=== PATIENT | female | born 1980 | race Caucasian/White ===

== ENCOUNTER 2016-09-06 11:31 | Emergency (ER) | payer BC ==
--- OUTSIDE RECORDS SUMMARY | 2016-09-06 11:53 | XMS REPORT | Summary of Care ---
:1980 Author Organization [facility] Address [address] [place] [address] Care Team Providers Name Role Phone DaesreeShrutiae Primary Care Physician Encounter Date(s): 04/06/16 - 04/06/16 [facility] [address], [address] [place], [place] [address] Discharge Disposition: 01 Discharged to Home or Self Care Attending Physician: Arnoldo Mcghee MD Vital Signs No data available for this section Problem List No data available for this section Allergies, Adverse Reactions, Alerts Substance Reaction Severity Status acetaminophen Active HYDROcodone Active Medications Carafate 1 g oral tablet 1 tab(s), Oral, QID, # 120 tab(s), 0 Refill(s), Start Date: 05/18/15 15:13:00 CDT, Pharmacy: [id number] Start Date: 05/18/15 Status: OrderedContrave 8 mg-90 mg oral tablet, extended release TK 2 TS PO BID IN THE MORNING AND EVENING FOR 30 DAYS Special Instructions: TK 2 TS PO BID IN THE MORNING AND EVENING FOR 30 DAYS Start Date: 05/13/15 Stop Date: 07/08/15 Status: DiscontinuedFlagyl 500 mg oral tablet 4 tab(s), Oral, ONETIME, # 4 tab(s), 0 Refill(s), Pharmacy: [id number] Start Date: 07/04/13 Stop Date: 05/13/15 Status: CompletedFlagyl 500 mg oral tablet 4 tab(s), Oral, ONETIME, # 4 tab(s), 0 Refill(s) Start Date: 07/04/13 Stop Date: 07/04/13 Status: DiscontinuedFlonase 50 mcg/inh nasal spray 2 spray(s), Nasal, BID, X 30 days, # 1 EA, 0 Refill(s), Start Date: 12/07/14 9: 38:00 CDT Start Date: 12/07/14 Stop Date: 01/06/15 Status: Completedhydrochlorothiazide 12.5 mg oral tablet 1 tab(s), Oral, As Indicated, PRN edema, TK 1 T PO ONCE DAILY FOR 30 DAYS Special Instructions: TK 1 T PO ONCE DAILY FOR 30 DAYS Start Date: 05/13/15 Status: Orderedhyoscyamine 0.125 mg sublingual tablet See Instructions, PRN abdominal pain, 1-2 tab(s) SL up to four times a day as needed for abdominal pain., # 30 tab(s), 1 Refill(s), Start Date: 07/20/15 11:39 :00 CDT, [facility] [id number] Special Instructions: 1-2 tab(s) SL up to four times a day as needed for abdominal pain. Start Date: 07/20/15 Status: OrderedJunel 1.5/30 oral tablet 1 tab(s), Oral, Daily, 0 Refill(s) Start Date: 07/04/13 Stop Date: 05/13/15 Status: Completedmeloxicam 15 mg oral tablet 1 tab(s), Oral, Daily, # 30 tab(s), 1 Refill(s), Start Date: 03/16/16 10:37:00 NECK PINNER, [facility] [id number] Start Date: 03/16/16 Status: OrderedNaprosyn 500 mg oral tablet 1 tab(s), Oral, BID, PRN for pain, X 15 days, # 30 tab(s), 0 Refill(s), Start Date: 05/13/15 19:06:00 CDT Start Date: 05/13/15 Stop Date: 05/28/15 Status: Completedomeprazole 40 mg oral delayed release capsule TK 1 C PO QD FOR 30 DAYS Special Instructions: TK 1 C PO QD FOR 30 DAYS Start Date: 05/13/15 Status: Orderedpantoprazole 40 mg oral delayed release tablet 1 tab(s), Oral, Daily, # 30 tab(s), 0 Refill(s) Start Date: 07/04/13 Stop Date: 05/13/15 Status: Completedphentermine 37.5 mg oral tablet 1 tab(s), Oral, Daily, 0 Refill(s) Start Date: 07/04/13 Stop Date: 05/13/15 Status: CompletedPromethazine with Codeine 6.25 mg-10 mg/5 mL oral syrup 5 mL, Oral, q4hr, PRN for cough, X 7 days, # 210 mL, 0 Refill(s), Start Date: 9:38:00 CDT Start Date: 12/07/14 Stop Date: 12/14/14 Status: CompletedReadi-Cat 2 oral suspension See Instructions, Oral ONETIME, # 2 bottles, 0 Refill(s), Start Date: 08/12/15 16:43:00 CDT, Pharmacy: [facility] Special Instructions: Oral ONETIME Start Date: 08/12/15 Status: OrderedZyrTEC 10 mg oral tablet 1 tab(s), Oral, Daily, PRN for allergy symptoms, X 14 days, # 14 tab(s), 0 Refill(s), Start Date: 12/07/14 9:38:00 CDT Start Date: 12/07/14 Stop Date: 12/21/14 Status: Completed Results No data available for this section Immunizations No data available for this section Procedures Procedure Date Related Diagnosis Body Site Breath Test Bacteria Lactulose1 07/10/15 Esophagogastroduodenoscopy2 06/05/15 Stripping of vein 04/08/13 Laparoscopic cholecystectomy 06/2012 Extraction of wisdom tooth 2012 Tonsillectomy 1985 1auto-populated from documented surgical [id number] from documented surgical case Social History No data available for this section Assessment and Plan No data available for this section
--- OUTSIDE RECORDS SUMMARY | 2016-09-06 11:54 | XMS REPORT | Summary of Care ---
:1980 Author Organization [facility] Address [address] [place] [address] Care Team Providers Name Role Phone LiangfauziaJeannette Primary Care Physician Encounter Date(s): 03/16/16 - 03/16/16 [facility] [address], [address] [place], [place] [address] Discharge Disposition: 01 Discharged to Home or Self Care Attending Physician: Festus Blackman DO Referring Physician: Unknown Physician Vital Signs Most recent to oldest [Reference Range]: 1 Peripheral Pulse Rate [60-100 bpm] 80 bpm (03/16/16 10:17 AM) Blood Pressure [90-130/60-90 mmHg] 126/84mmHg (03/16/16 10:17 AM) Mean Arterial Pressure, Cuff 98 mmHg (03/16/16 10:17 AM) Most recent to oldest [Reference Range]: 1 Height/Length Measured 167 cm (03/16/16 10:17 AM) Weight Dosing 152.90 kg1 (03/16/16 10:19 AM) Weight Measured 152.9 kg (03/16/16 10:17 AM) BSA Measured 2.49 m2 (03/16/16 10:17 AM) Body Mass Index Measured 54.82 kg/m2 (03/16/16 10:17 AM) 1Result Comment: This result was because the dosing weight was either not entered or it is>30 days old. This result is based off: Weight Measured March 16, 2016 10:17:00 FILL MANAGER by Karoline James CMA Problem List No data available for this section Allergies, Adverse Reactions, Alerts Substance Reaction Severity Status acetaminophen Active HYDROcodone Active Medications Carafate 1 g oral tablet 1 tab(s), Oral, QID, # 120 tab(s), 0 Refill(s), Start Date: 05/18/15 15:13:00 CDT, Pharmacy: [id number] Start Date: 05/18/15 Status: OrderedContrave 8 mg-90 mg oral tablet, extended release TK 2 TS PO BID IN THE MORNING AND EVENING FOR 30 DAYS Special Instructions: TK 2 TS PO BID IN THE MORNING AND EVENING FOR 30 DAYS Start Date: 05/13/15 Stop Date: 07/08/15 Status: DiscontinuedFlagyl 500 mg oral tablet 4 tab(s), Oral, ONETIME, # 4 tab(s), 0 Refill(s), Pharmacy: [facility] [id number] Start Date: 07/04/13 Stop Date: 05/13/15 Status: [...] Start Date: 07/20/15 11:39 :00 CDT, Pharmacy: [id number] Special Instructions: 1-2 tab(s) SL up to four times a day as needed for abdominal pain. Start Date: 07/20/15 Status: OrderedJunel 1.5/30 oral tablet 1 tab(s), Oral, Daily, 0 Refill(s) Start Date: 07/04/13 Stop Date: 05/13/15 Status: Completedmeloxicam 15 mg oral tablet 1 tab(s), Oral, Daily, # 30 tab(s), 1 Refill(s), Start Date: 03/16/16 10:37:00 FILL MANAGER, Pharmacy: [facility] [id number] Start Date: 03/16/16 Status: OrderedNaprosyn 500 mg [...] Refill(s), Start Date: 08/12/15 16:43:00 CDT, Pharmacy: [facility] Special Instructions: Oral ONETIME Start Date: [...] 06/2012 Extraction of wisdom tooth 2012 Tonsillectomy 1986 1auto-populated from documented surgical [id number] from documented surgical case Social History No data available for this section Assessment and Plan No data available for this section
--- OUTSIDE RECORDS SUMMARY | 2016-09-06 11:54 | XMS REPORT | Summary of Care ---
:[address] [facility] Address [address] [place] [address] Care Team Providers Name Role Phone Daesree Jeannette Primary Care Physician Encounter Date(s): 07/10/15 - 07/10/[address] [email or web address] Final: Unspecified abdominal pain Discharge Disposition: Discharged to Home or Self Care Attending Physician: Reji Jean DO Admitting Physician: Reji Jean DO Vital Signs No data available for this section Problem List No data available for this section Allergies, Adverse Reactions, Alerts Substance Reaction Severity Status acetaminophen Active HYDROcodone Active Medications Carafate 1 g oral tablet 1 tab(s), Oral, QID, # 120 tab(s), 0 Refill(s), Start Date: 05/18/15 15:13:00 CDT, Pharmacy: [id number] Start Date: 05/18/15 Status: OrderedContrave 8 mg-90 mg oral tablet, extended release TK 2 TS PO BID IN THE MORNING AND EVENING FOR 30 DAYS Special Instructions: TK 2 TS PO BID IN THE MORNING AND EVENING FOR 30 DAYS Start Date: 05/13/15 Stop Date: 07/08/15 Status: DiscontinuedFlagyl 500 mg oral tablet 4 tab(s), Oral, ONETIME, # 4 tab(s), 0 Refill(s), Pharmacy: [facility] [id number] Start Date: 07/04/13 Stop Date: 05/13/15 Status: [...] Start Date: 07/20/15 11:39 :00 CDT, Pharmacy: [facility] [id number] Special Instructions: 1-2 tab(s) SL up to four times a day as needed for abdominal pain. Start Date: 07/20/15 Status: OrderedJunel 1.5/30 oral tablet 1 tab(s), Oral, Daily, 0 Refill(s) Start Date: 07/04/13 Stop Date: 05/13/15 Status: CompletedNaprosyn 500 mg oral tablet 1 tab(s), Oral, [...] Start Date: 12/07/14 Stop Date: 12/14/14 Status: CompletedZyrTEC 10 mg oral tablet 1 tab(s), Oral, [...] 2012 Tonsillectomy 1986 1auto-populated from documented surgical [id number] from documented surgical case Social History No data available for this section Assessment and Plan No data available for this section
--- OUTSIDE RECORDS SUMMARY | 2016-09-06 11:54 | XMS REPORT | Summary of Care ---
:1980 Author Organization [facility] Address [address] [place] [address] [address] [place] [address] Care Team Providers Name Role Phone Jeannette Bardales Primary Care Physician Encounter Date(s): 07/20/15 - 07/20/15 [facility] [address] [place] [address] [address] [place] [address]- Discharge Diagnosis: Fatty infiltration of liver Discharge Diagnosis: Cough Discharge Diagnosis: Epigastric abdominal pain Discharge Disposition: 01 Discharged to Home or Self Care Attending Physician: MARIE Lynn Referring Physician: MARIE Lynn Vital Signs Most recent to oldest [Reference Range]: 1 Peripheral Pulse Rate [60-100 bpm] 74 bpm (07/20/15 11:12 AM) Blood Pressure [90-130/60-90 mmHg] 119/81mmHg (07/20/15 11:12 AM) Mean Arterial Pressure, Cuff 94 mmHg (07/20/15 11:12 AM) Most recent to oldest [Reference Range]: 1 Height/Length Measured 167 cm (07/20/15 11:12 AM) Weight Dosing 152.5 kg (07/20/15 11:12 AM) Weight Measured 152.5 kg (07/20/15 11:12 AM) BSA Measured 2.49 m2 (07/20/15 11:12 AM) Body Mass Index Measured 54.68 kg/m2 (07/20/15 11:12 AM) Problem List No data available for this section Allergies, Adverse Reactions, Alerts Substance Reaction Severity Status acetaminophen Active HYDROcodone Active Medications Carafate 1 g oral tablet 1 tab(s), Oral, QID, # 120 tab(s), 0 Refill(s), Start Date: 05/18/15 15:13:00 CDT, Pharmacy: [id number] Start Date: 05/18/15 Status: OrderedContrave 8 mg-90 mg oral tablet, extended release TK 2 TS PO BID IN THE MORNING AND EVENING FOR 30 DAYS Special Instructions: TK 2 TS PO BID IN THE MORNING AND EVENING FOR 30 DAYS Start Date: 05/13/15 Stop Date: 07/08/15 Status: DiscontinuedFlagyl 500 mg oral tablet 4 tab(s), Oral, ONETIME, # 4 tab(s), 0 Refill(s), Pharmacy: [id number] Start Date: 07/04/13 Stop Date: 05/13/15 Status: [...] Start Date: 07/20/15 11:39 :00 CDT, Pharmacy: [id number] Special Instructions: 1-2 tab(s) SL up to [...] 2012 Tonsillectomy 1985 1auto-populated from documented surgical [id number] from documented surgical case Social History No data available for this section Assessment and Plan No data available for this section
--- OUTSIDE RECORDS SUMMARY | 2016-09-06 11:54 | XMS REPORT | Summary of Care ---
:1980 Author Organization [facility] Address [address] [place] [address]- Care Team Providers Name Role Phone Daesree Jeannette Primary Care Physician Encounter Date(s): 07/10/15 - 07/10/[address] [address] Final: Unspecified abdominal pain Discharge Disposition: Discharged [...] Refill(s), Start Date: 05/18/15 15:13:00 CDT, Pharmacy: [facility] [id number] Start Date: 05/18/15 Status: OrderedContrave 8 mg-90 mg oral tablet, extended release TK 2 TS PO BID IN THE MORNING AND EVENING FOR 30 DAYS Special Instructions: TK 2 TS PO BID IN THE MORNING AND EVENING FOR 30 DAYS Start Date: 05/13/15 Stop Date: 07/08/15 Status: DiscontinuedFlagyl 500 mg oral tablet 4 tab(s), Oral, ONETIME, # 4 tab(s), 0 Refill(s), Pharmacy: [facility] [id number] Start Date: 07/04/13 Stop Date: 05/13/15 Status: [...] Start Date: 07/20/15 11:39 :00 CDT, Pharmacy: [facility] [id number] Special Instructions: 1-2 tab(s) SL up to [...] 2012 Tonsillectomy 1986 1auto-populated from documented surgical [id number] from documented surgical case Social History No data available for this section Assessment and Plan No data available for this section
--- OUTSIDE RECORDS SUMMARY | 2016-09-06 11:55 | XMS REPORT | Summary of Care ---
:1980 Author Organization [facility] Care Team Providers Name Role Phone LiangfauziaJeannette Primary Care Physician Encounter Date(s): 07/18/16 - 07/18/[address] [address] Discharge Diagnosis: Keo-gbat-aiwwqmd adverse reaction to medication Discharge Disposition: Discharged to Home or Self Care Attending Physician: Nick Muller MD Admitting Physician: Nick Muller MD Vital Signs Most recent to oldest [Reference 1 2 3 Range]: Temperature Temporal Artery 36.3 DegC [36.0-38.0 DegC] (07/18/16 3:44 PM) Heart Rate Monitored [60-100 bpm] 77 bpm 77 bpm 80 bpm (07/18/16 6:15 PM) (07/18/16 5:45 PM) (07/18/16 5:30 PM) Respiratory Rate [12-20 br/min] 17 br/min 15 br/min 22 br/min (07/18/16 6:15 PM) (07/18/16 5:45 PM) *HI* (07/18/16 5:30 PM) SpO2 [90-100 %] 99 % 98 % 97 % (07/18/16 6:15 PM) (07/18/16 5:45 PM) (07/18/16 5:30 PM) Blood Pressure [90-130/60-90 mmHg] 120/72mmHg 120/95mmHg 117/74mmHg (07/18/16 6:15 PM) (07/18/16 5:45 PM) (07/18/16 5:30 PM) Mean Arterial Pressure Monitor 83 mmHg 101 mmHg 84 mmHg Measure (07/18/16 6:15 PM) (07/18/16 5:45 PM) (07/18/16 5:30 PM) Most recent to oldest [Reference Range]: 1 2 3 Weight Estimated 115 kg (07/18/16 3:44 PM) Weight Dosing 115.00 kg1 (07/18/16 3:46 PM) 1Result Comment: This result was because the dosing weight was either not entered or it is>30 days old. This result is based off: Weight Estimated July 18, 2016 15:44:00 CDT by Jenny Castro RN Problem List Condition Effective Dates Status Health Status Informant Dmd-kzhv-nbtbiot adverse reaction to Active medication(Confirmed) Allergies, Adverse Reactions, Alerts Substance Reaction Severity Status acetaminophen Active HYDROcodone Active Medications Carafate 1 g oral tablet 1 tab(s), Oral, QID, # 120 tab(s), 0 Refill(s), Start Date: 05/18/15 15:13:00 CDT, Pharmacy: [facility] [id number] Start Date: 05/18/15 Stop Date: 07/18/16 Status: CompletedContrave 8 mg-90 mg oral tablet, extended release TK 2 TS PO BID IN THE MORNING AND EVENING FOR 30 DAYS Special Instructions: TK 2 TS PO BID IN THE MORNING AND EVENING FOR 30 DAYS Start Date: 05/13/15 Stop Date: 07/08/15 Status: DiscontinuedFlagyl 500 mg oral tablet 4 tab(s), Oral, ONETIME, # 4 tab(s), 0 Refill(s), Pharmacy: [facility] [id number] Start Date: 07/04/13 Stop Date: 05/13/15 Status: CompletedFlagyl 500 mg oral tablet 4 tab(s), Oral, ONETIME, # 4 tab(s), 0 Refill(s) Start Date: 07/04/13 Stop Date: 07/04/13 Status: DiscontinuedFlexeril 10 mg oral tablet 1 tab(s), Oral, HS, PRN as needed for muscle spasm, 0 Refill(s), Start Date: 06/29 16:04:00 CDT Start Date: 07/18/16 Status: OrderedFlonase 50 mcg/inh nasal spray 2 spray(s), Nasal, [...] DAILY FOR 30 DAYS Start Date: 05/13/15 Stop Date: 07/18/16 Status: Completedhyoscyamine 0.125 mg sublingual tablet See Instructions, PRN abdominal pain, 1-2 tab(s) SL up to four times a day as needed for abdominal pain., # 30 tab(s), 1 Refill(s), Start Date: 07/20/15 11:39 :00 CDT, Pharmacy: [facility] [id number] Special Instructions: 1-2 tab(s) SL up to four times a day as needed for abdominal pain. Start Date: 07/20/15 Status: OrderedJunel 1.5/30 oral tablet 1 tab(s), Oral, Daily, 0 Refill(s) Start Date: 07/04/13 Stop Date: 05/13/15 Status: CompletedLexapro 10 mg oral tablet 1 tab(s), Oral, Daily, # 30 tab(s), 0 Refill(s), Start Date: 07/18/16 16:03:00 CDT Start Date: 07/18/16 Status: Orderedlisinopril-hydroCHLOROthiazide 10 mg-12.5 mg oral tablet 1 tab(s), Oral, Daily, # 30 tab(s), 0 Refill(s), Start Date: 07/18/16 16:03:00 CDT Start Date: 07/18/16 Status: Orderedmeloxicam 15 mg oral tablet 1 tab(s), Oral, Daily, # 30 tab(s), 1 Refill(s), Start Date: 03/16/16 10:37:00 STUDIO ARTIST, Pharmacy: [facility] [id number] Start Date: 03/16/16 Stop Date: 07/18/16 Status: CompletedNaprosyn 500 mg oral tablet 1 tab(s), Oral, BID, PRN for pain, X 15 days, # 30 tab(s), 0 Refill(s), Start Date: 05/13/15 19:06:00 CDT Start Date: 05/13/15 Stop Date: 05/28/15 Status: Completedomeprazole 40 mg oral delayed release capsule 1 cap(s), Oral, Daily, PRN indigestion, TK 1 C PO QD FOR 30 [...] Refill(s), Start Date: 08/12/15 16:43:00 CDT, [facility] Special Instructions: Oral ONETIME Start Date: 08/12/15 Stop Date: 07/18/16 Status: CompletedZyrTEC 10 mg oral tablet 1 tab(s), Oral, Daily, PRN for allergy symptoms, X 14 days, # 14 tab(s), 0 Refill(s), Start Date: 12/07/14 9:38:00 CDT Start Date: 12/07/14 Stop Date: 12/21/14 Status: Completed Results Patient Viewable Results Most recent to oldest [Reference Range]: 1 WBC [4.8-10.8 thou/mm3] 8.2 thou/mm3 (07/18/16 4:23 PM) RBC [4.20-5.40 Mil/mm3] 4.69 Mil/mm3 (07/18/16 4:23 PM) Hgb [12.0-16.0 g/dL] 14.1 g/dL (07/18/16 4:23 PM) Hct [37.0-47.0 %] 41.9 % (07/18/16 4:23 PM) MCV [80.0-94.0 fL] 89.3 fL (07/18/16 4:23 PM) MCH [25.0-38.0 pg/cell] 30.1 pg/cell (07/18/16 4:23 PM) MCHC [31.0-37.0 g/dL] 33.7 g/dL (07/18/16 4:23 PM) RDW [1.0-48.0 fL] 44.1 fL (07/18/16 4:23 PM) Platelet [130-400 thou/mm3] 308 thou/mm3 (07/18/16 4:23 PM) Neutrophils % Auto [50.0-75.0 %] 65.4 % (07/18/16 4:23 PM) Immature Granulocyte Auto [0.1-2.0 %] 0.2 % (07/18/16 4:23 PM) Lymphocytes % Auto [15.0-41.0 %] 26.2 % (07/18/16 4:23 PM) Monocytes % Auto [2.0-10.0 %] 7.1 % (07/18/16 4:23 PM) Eosinophils % Auto [0.0-6.0 %] 0.9 % (07/18/16 4:23 PM) Basophil % Auto [0.0-1.0 %] 0.2 % (07/18/16 4:23 PM) Neutrophils Absolute [1.5-5.9 thou/mm3] 5.4 thou/mm3 (07/18/16 4:23 PM) Immature Gran Absolute [0.01-0.03 thou/mm3] 0.02 thou/mm3 (07/18/16 4:23 PM) Lymphocytes Absolute [1.5-4.0 thou/mm3] 2.2 thou/mm3 (07/18/16 4:23 PM) Monocytes Absolute [0.0-0.9 thou/mm3] 0.6 thou/mm3 (07/18/16 4:23 PM) Eosinophil Absolute [0.0-0.7 thou/mm3] 0.1 thou/mm3 (07/18/16 4:23 PM) Basophil Absolute [0.0-0.2 thou/mm3] 0.0 thou/mm3 (07/18/16 4:23 PM) Sodium Lvl [135-144 mEq/L] 136 mEq/L (07/18/16:23 PM) Potassium Lvl [3.3-4.8 mEq/L] 3.9 mEq/L (07/18/16:23 PM) Chloride Lvl [98-107 mEq/L] 95 mEq/L *LOW* (07/18/16: PM) Bicarbonate Lvl [22-30 mmol/L] 27 mmol/L (07/18/16:23 PM) Anion Gap [10.0-20.0] 17.9 (07/18/16:23 PM) Glucose Lvl [70-108 mg/dL] 100 mg/dL (07/18/16:23 PM) BUN [7-21 mg/dL] 8 mg/dL (07/18/16:23 PM) Creatinine Lvl [0.50-1.20 mg/dL] 0.63 mg/dL (07/18/16:23 PM) BUN/Creat Ratio 12.7 *NA* (07/18/16:23 PM) eGFR AA [>=60] >60 (07/18/16:23 PM) eGFR EDI [>=60] >60 (07/18/16:23 PM) Calcium Lvl [8.6-10.2 mg/dL] 9.4 mg/dL (07/18/16:23 PM) Total Protein [6.4-8.3 g/dL] 7.9 g/dL (07/18/16:23 PM) Albumin Lvl [3.5-5.2 g/dL] 4.5 g/dL (07/18/16:23 PM) Globulin 3.4 *NA* (07/18/16:23 PM) A/G Ratio [0.9-1.8] 1.3 (07/18/16:23 PM) Bilirubin Total [0.1-1.0 mg/dL] 0.4 mg/dL (07/18/16:23 PM) Alkaline Phosphatase [39-129 unit/L] 72 unit/L (07/18/16 4:23 PM) AST [0-39 unit/L] 20 unit/L (07/18/16 4:23 PM) ALT [0-40 unit/L] 22 unit/L (07/18/16 4:23 PM) Troponin-I [0.00-0.04 ng/mL] <0.01 ng/mL (07/18/16 4:23 PM) TSH [0.50-3.00 mIU/L] 1.56 mIU/L (07/18/16 4:23 PM) Estimated Creatinine Clearance 159.83 mL/min (07/18/16 4:56 PM) Immunizations No data available for this section Procedures Procedure Date Related Diagnosis Body Site Breath Test Bacteria Lactulose1 07/10/15 Esophagogastroduodenoscopy2 06/05/15 Stripping of vein 04/08/13 Laparoscopic cholecystectomy 06/2012 Extraction of wisdom tooth 2012 Tonsillectomy 1985 1auto-populated from documented surgical [id number] from documented surgical case Social History No data available for this section Assessment and Plan No data available for this section
--- OUTSIDE RECORDS SUMMARY | 2016-09-06 11:55 | XMS REPORT | Summary of Care ---
:1980 Author Organization [facility] Address [address] [place] [address] [address] [place] [address] Care Team Providers Name Role Phone JeffyShrutiae Primary Care Physician Encounter Date(s): 07/10/15 - 07/10/15 [facility] [address] [place] [address] [address] [place] [address]- Discharge Disposition: 01 Discharged to Home or Self Care Attending Physician: MARIE Lynn Referring Physician: Reji Jean, Vital Signs No data available for this section Problem List No data available for this section Allergies, Adverse Reactions, Alerts Substance Reaction Severity Status acetaminophen Active HYDROcodone Active Medications Carafate 1 g oral tablet 1 tab(s), Oral, QID, # 120 tab(s), 0 Refill(s), Start Date: 05/18/15 15:13:00 CDT, Pharmacy: [facility] [id number] Start Date: 05/18/15 Status: OrderedContrave 8 mg-90 mg oral tablet, extended release TK 2 TS PO BID IN THE MORNING AND EVENING FOR 30 DAYS Special Instructions: TK 2 TS PO BID IN THE MORNING AND EVENING FOR 30 DAYS Start Date: 05/13/15 Stop Date: 07/08/15 Status: DiscontinuedFlagyl 500 mg oral tablet 4 tab(s), Oral, ONETIME, # 4 tab(s), 0 Refill(s), Pharmacy: [facility] [id number] Start Date: 07/04/13 Stop Date: 05/13/15 Status: [...] Start Date: 07/20/15 11:39 :00 CDT, Pharmacy: [facility] Special Instructions: 1-2 tab(s) SL up to [...] 2012 Tonsillectomy 1985 1auto-populated from documented surgical [id number] from documented surgical case Social History No data available for this section Assessment and Plan No data available for this section
--- OUTSIDE RECORDS SUMMARY | 2016-09-06 11:55 | XMS REPORT | Summary of Care ---
:1980 Author Organization [facility] Address [address] [place] [id number] Care Team Providers Name Role Phone DaeJeannette balbuena Primary Care Physician Encounter Date(s): 07/20/15 - 07/20/[address] [id number] Final: Epigastric pain Discharge Disposition: 01 Discharged to Home or Self Care Attending Physician: MARIE Lynn Vital Signs No data available for this section Problem List No data available for this section Allergies, Adverse Reactions, Alerts Substance Reaction Severity Status acetaminophen Active HYDROcodone Active Medications Carafate 1 g oral tablet 1 tab(s), Oral, QID, # 120 tab(s), 0 Refill(s), Start Date: 05/18/15 15:13:00 CDT, Pharmacy: [facility] [id number] Start Date: 05/18/15 Status: OrderedContrave 8 mg-90 mg oral tablet, extended release TK 2 TS PO BID IN THE MORNING AND EVENING FOR 30 DAYS Special Instructions: TK 2 TS PO BID IN THE MORNING AND EVENING FOR 30 DAYS Start Date: 05/13/15 Stop Date: 07/08/15 Status: DiscontinuedFlagyl 500 mg oral tablet 4 tab(s), Oral, ONETIME, # 4 tab(s), 0 Refill(s), Pharmacy: [facility] [id number] Start Date: 07/04/13 Stop Date: 05/13/15 Status: [...] Start Date: 07/20/15 11:39 :00 CDT, Pharmacy: [facility] [id number] Special Instructions: 1-2 tab(s) SL up to [...] Most recent to oldest [Reference Range]: 1 TTG IgA-Khan [<4.0 (Negative)] <1.21 *NA* (07/20/15 11:59 AM) Endomysial IgA-Khan [Negative] Negative2 *NA* (07/20/15 11:59 AM) 1Result Comment: Test Performed by: [place] [address] Coordinator Skill Training Program: Cristhian Cruz II, M.D., Ph.D.2Result Comment: Negative in normal individuals. May be negative in dermatitis herpatiformis or celiac disease patients adhering to a gluten free diet. ADDITIONAL INFORMATION Laboratory developed test. Test Performed by: [place] [address] Coordinator Skill Training Program: Cristhian Cruz II, M.D., Ph.D. Immunizations No data available for this section Procedures Procedure Date Related Diagnosis Body Site Breath Test Bacteria Lactulose1 07/10/15 Esophagogastroduodenoscopy2 06/05/15 Stripping of vein 04/08/13 Laparoscopic cholecystectomy 06/2012 Extraction of wisdom tooth 2012 Tonsillectomy 1985 1auto-populated from documented surgical [id number] from documented surgical case Social History No data available for this section Assessment and Plan No data available for this section
[2016-09-06] MEDS ORDERED: ACETAMINOPHEN 500 MG TABLET PO ONE (12:46)
[2016-09-06 12:47] VITALS: BP 138/89
--- NOTE | 2016-09-06 13:14 | ERNOTE ---
Lower Extremity HPI - Narrative Date of Service: 09/06/16 - General Lower Extremities Pain: other: left - thigh Time Seen by Provider: 09/06/16 11:40 Source: patient - Immun/Allergies/Home Medications Immunizations: IMMUNIZATION HX Immunizations Up to Date Yes History of Influenza Vaccine Yes Hx Pneumococcal Vaccination Yes Allergies/Adverse Reactions: Allergies Allergy/AdvReac Type Severity Reaction Status Date / Time hydrocodone Allergy Swelling Verified 09/06/16 11:39 of Face Home Medications: HOME MEDICATIONS Hydrochlorothiazide [Hydrodiuril] 25 mg PO DAILY 04/29/15 [Last Taken 04/28/15] Lisinopril [Prinivil] 10 mg PO DAILY 09/06/16 [Last Taken Unknown] Naproxen 500 mg PO BID #10 tablet. 09/06/16 [Last Taken Unknown] Omeprazole 40 mg PO DAILY 09/06/16 [Last Taken Unknown] - History of Present Illness Narrative: Patient presents concerned about a blood clot. She relates that yesterday mornign she wqoke up and had pain in her left thigh. This was associated with swelling of her left leg. She deniers injury. It hurts in her thigh to walk on it. no N/T/W. no joint pain. no fever. She talked to a nurse at work and was told to go to the ED to be checked for a blood clot. No specific joint pain. no redness. no other pain. no abdominal pain. No fever or vomiting. Pain worse with weight bearing. No back pain, no radicular Sx. Occurred: yesterday Method of Injury: Reports: other - none Modifying Factors - (Improves): Reports: rest Modifying Factors - (Worsens): Reports: other - walking Associated Symptoms: Denies: unable to bear weight Subsequent Symptoms: Denies: numbness, motor loss, bowel/bladder problem Prior Treament: Denies: recently seen Review of Systems - Review of Systems Constitutional: Absent: fever Respiratory: Absent: shortness of breath Cardiology: Absent: chest pain Gastrointestinal/Abdominal: Absent: abdominal pain Genitourinary: Absent: dysuria Musculoskeletal: Present: muscle pain. Absent: back pain Skin: Absent: rash Neurological: Absent: weakness Hematologic/Lymphatic: Absent: easy bruising - Patient's Past Medical History Patient History - Medical: GERD Patient History - Cardiac/Respiratory: Deep Vein Thrombosis, Hypertension Patient History - Cancer: No Hx of Cancer Patient History - Surgical Procedures: Cholecystectomy, T & A, Other - Social History Abuse History: No History of abuse Psych History: No pertinent hx Smoking Status: Never smoker Have you smoked in the past 12 months: No Alcohol Use: none Drug Use: none - Immunizations Immunizations Up to Date: Yes Hx Pneumococcal Vaccination: Yes History of Influenza Vaccine: Yes Physical Exam - Physical Exam General Appearance: Present: alert, no apparent distress Head Exam: Present: normal inspection, no evidence of injury Eye Exam: Normal inspection: bilateral Respiratory: Present: no respiratory distress Cardiovascular/Chest: Present: regular rate, rhythm, normal peripheral pulses Gastrointestinal/Abdominal: Present: normal bowel sounds, nondistended Back Exam: Present: normal inspection, normal range of motion, no vertebral tenderness Extremity Exam: Present: normal inspection, other - there is muscular tenderness left lateral and anterior thigh that seems to reproduce her Sx. No Compartment syndrome. No vascular deficit. No bone pain. ROM hip and knee wnl. Nothing to suggest septic arthritis or fracture. No redness. No joint instability. Trace pretibial edema. 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 Ambulates, mild antalgic. Skin Exam: Present: normal color, warm/dry. Absent: cool/dry, cyanosis, skin rash ED Progress - Vital Signs Patient's Vital Signs:: I have reviewed the patient's vital signs. Vital Signs: Vital Signs 09/06/16 09/06/16 11:36 12:46 Temperature 36.7 C 36.3 C L Pulse Rate 80 80 Respiratory 14 Rate Blood Pressure 155/101 138/89 O2 Sat by Pulse 97 96 Oximetry - CT/Ultrasound CT/Ultrasound Narrative: US negative for DVT. - Progress/Reassessment Chief Complaint: Lower Extremity Pain/ Injury Progress:: Unchanged Progress Note-Subjective: 09/06/16 13:13 No findicgs of neuro or vascular deficit. No DVT. Nothign to suggest compartment syndrome. No suggestion of fracture or life/limb threat. She feels like going home. F/U PCP within 48 hours and rest/elevate. I discussed warning signs and reasons to return as well as the need for close f/u. Departure Clinical Impression: Musculoskeletal pain of extremity - Departure Disposition: Home self-care Condition: Stable Instructions: Musculoskeletal Pain Additional Instructions: Rest. No work next 2 days. Follow-up with your doctor in 48 hours for a re- check. Call for an appointment. Return here for fever, increased pain, numbness, tingling, weakness or if your condition worsens or changes in any way. Prescriptions: Naproxen 500 mg PO BID #10 tablet.
== END 2016-09-06 13:04 | disposition home or self-care (01) ==
LOC: ER 11:31
DX: M79.662 Pain in left lower leg (principal); Z86.718 Personal history of other venous thrombosis and embolism; I10 Essential (primary) hypertension; K21.9 Gastro-esophageal reflux disease without esophagitis

== ENCOUNTER 2017-03-28 13:56 | Emergency (ER) | payer BC ==
[2017-03-28] MEDS ORDERED: ASPIRIN 81 MG TAB.CHEW PO ONE (14:04)
[2017-03-28 14:20] LABS: Hematocrit 37.6 % (37.0-47.0); Hemoglobin 12.6 gm/dL (12.5-16.0); Mean Corpuscular Hemoglobin 30.1 pg (27-31); Mean Corpuscular Hgb Conc 33.5 g/dl (32-36); Mean Platelet Volume 9.5 fl (6.0-9.5); Neutrophil # 6.2 K/mm3 (1.3-6.0); Neutrophil % 71.2 % (42-75.0); Platelet Count 301 K/mm3 (150-450); Red Blood Count 4.18 M/mm3 (4.2-5.4); Red Cell Distribution Width 13.2 % (11.5-14.0); White Blood Count 8.7 K/mm3 (4.0-10.5)
[2017-03-28] MEDS ORDERED: ASPIRIN 81 MG TAB.CHEW ONE (14:32)
--- NOTE | 2017-03-28 14:34 | ERNOTE ---
Chest Pain/Cardiac HPI Chief Complaint: Chest Pain Time Seen by Provider: 03/28/17 14:05 Source: patient Exam Limitations: no limitations Immunizations: IMMUNIZATION HX Immunizations Up to Date Yes History of Influenza Vaccine Yes Hx Pneumococcal Vaccination Yes Allergies/Adverse Reactions: Allergies hydrocodone Allergy (Verified 03/28/17 14:08) Swelling of Face Home Medications: HOME MEDICATIONS Omeprazole 40 mg PO DAILY 09/06/16 [Last Taken Unknown] Naproxen [Naprosyn] 500 mg PO BID #60 tablet 03/28/17 [Last Taken Unknown] Narrative: Patient complains of chest tightness and congestion over the past 24 hours and patient's doctor suggested she come in to be evaluated here. Timing: constant Severity/Quality: mild Location: central Chest Pain Radiation: no radiation Activities at Onset: none Modifying Factors - Improves: Present: nothing Modifying Factors - Worsens: Present: nothing Nitro Today/Relief: no nitro taken today Aspirin Treatment Today: 81 mg x 4, provided by ED Associated Symptoms: Present: cough, shortness of breath Prior Chest Pain/Cardiac Workup: Reports: no prior cardiac workup Review of Systems - Review of Systems Constitutional: Present: no symptoms reported EYE: Present: no symptoms reported ENT: Present: no symptoms reported Respiratory: Present: See HPI Cardiology: Present: chest pain Gastrointestinal/Abdominal: Present: no symptoms reported Genitourinary: Present: no symptoms reported Musculoskeletal: Present: no symptoms reported Skin: Present: no symptoms reported Neurological: Present: no symptoms reported Endocrine: Present: no symptoms reported Hematologic/Lymphatic: Present: no symptoms reported Psych: Present: no symptoms reported - Patient's Past Medical History Patient History - Medical: GERD Patient History - Cardiac/Respiratory: Deep Vein Thrombosis, Hypertension Patient History - Cancer: No Hx of Cancer Patient History - Surgical Procedures: Cholecystectomy, T & A Patient History - Other: None LMP (females 10-50): other - Social History Living Situations: home Abuse History: No History of abuse Psych History: No pertinent hx Alcohol Use: occasionally Drug Use: none - Immunizations Immunizations Up to Date: Yes Hx Pneumococcal Vaccination: Yes History of Influenza Vaccine: Yes Physical Exam - Physical Exam General Appearance: Present: wd/wn, alert, mild distress Head Exam: Present: normal inspection, no evidence of injury Eye Exam: Normal inspection: bilateral, PERRL: bilateral Ears, Nose, Throat: Present: normal ENT inspection, H, normal pharynx Neck: Present: normal inspection, nontender Respiratory: Present: no respiratory distress, normal breath sounds, no accessory muscle use, chest tenderness - reproduces complaint Cardiovascular/Chest: Present: regular rate, rhythm, no murmur, normal peripheral pulses Gastrointestinal/Abdominal: Present: normal bowel sounds, nontender, nondistended, soft, no organomegaly Rectal Exam: Present: deferred Back Exam: Present: normal inspection, normal range of motion Extremity Exam: Present: normal inspection, non-tender, no edema, normal range of motion Neurological Exam: Present: alert, oriented, normal mood/affect Skin Exam: Present: normal color, warm/dry Lymphatic Exam: Present: no adenopathy ED Progress - Results and Orders Patient's Lab Results:: I have reviewed the patient's lab results. - Vital Signs Patient's Vital Signs:: I have reviewed the patient's vital signs. Vital Signs: Vital Signs 03/28/17 14:05 Temperature 37.0 C Pulse Rate 92 Respiratory 15 Rate Blood Pressure 152/74 O2 Sat by Pulse 96 Oximetry - EKG EKG: NSR - X-Ray X-Ray #1 X-Ray: chest Interpretation: Reviewed by me - Progress/Reassessment Chief Complaint: Chest Pain Plan - Plan Plan: Patient appears to have chest wall pain and will be started on a nonsteroidal and she will follow-up with her family physician as needed. Departure Clinical Impression: Acute chest wall pain - Departure Disposition: Home self-care Condition: Good Instructions: Chest Wall Pain, [id number] Referrals: Jeannette Bardales DO [Primary Care Provider] - Prescriptions: Naproxen [Naprosyn] 500 mg PO BID #60 tablet
[2017-03-28 14:42] LABS: ALT 33 U/L (19-67); AST 20 U/L (0-48); Albumin * 3.4 gm/dl (3.4-5.0); Alkaline Phosphatase * 81 U/L (50-170); Anion Gap 10.7 mmol/L (6.8-13.8); BUN/Creatinine Ratio 10.4 (9.0-21.6); Bilirubin, Total 0.4 mg/dL (0.0-1.1); Blood Urea Nitrogen 8 mg/dL (3-23); Ca. Corrected For Albumin 8.9 mg/dL (8.4-10.2); Calcium * 8.7 mg/dL (7.9-10.9); Chloride 101 mmol/L (97-106); Glucose * 119 mg/dL (70-110); Magnesium 2.1 mg/dL (1.2-2.8); Potassium 3.7 mmol/L (3.4-4.6); Sodium 138 mmol/L (132-142); Total Protein 7.2 gm/dL (6.2-8.2); Troponin I Less than 0.017 ng/ml (0.00-0.10)
[2017-03-28 15:05] VITALS: BP 134/90
== END 2017-03-28 15:04 | disposition home or self-care (01) ==
LOC: ER 13:56
DX: R07.89 Other chest pain (principal); K21.9 Gastro-esophageal reflux disease without esophagitis; Z86.718 Personal history of other venous thrombosis and embolism